=== PATIENT | female | born 1970 | race Hispanic/Latino ===

== ENCOUNTER → 2024-09-28 | Outpatient (CLI) | payer OTHER, SELFPAY ==
[~2024-09-28] MED LIST: BIRTH CONTROL PILL
--- NOTE | 2024-09-28 16:32 | HMCIMG ---
MR KNEE LEFT WO HISTORY: No additional history given. COMPARISON: None TECHNIQUE: MRI of the left knee was performed utilizing multiple pulse sequences in axial, coronal and sagittal planes. Patient was not given contrast through intravenous route. FINDINGS: Abnormal increased signal intensity is seen involving the proximal tibia consistent bone bruise (microtrabecular fracture). Small joint effusion is seen. The anterior cruciate and posterior cruciate ligaments are grossly intact. The medial and lateral collateral ligaments are also intact. Quadriceps tendon and patellar tendon are within normal limits. There is intrasubstance tear involving the medial and lateral menisci. There appears be medial meniscal tear involving posterior horn with both superior and inferior articular extension. No evidence of Madrid's cyst is seen. IMPRESSION: 1. Suspect medial meniscal tear. Small joint effusion is seen. Bone bruise is seen of the proximal tibia at midline.
== END | disposition home or self-care (01) ==
LOC: RAH 14:11
PROVIDERS: ATTEND Internal Medicine
DX: S80.12XA Contusion of left lower leg, initial encounter (principal); M23.305 Other meniscus derangements, unspecified medial meniscus, unspecified knee; M25.462 Effusion, left knee; Z13.29 Encounter for screening for other suspected endocrine disorder; X58.XXXA Exposure to other specified factors, initial encounter; Y93.89 Activity, other specified; Y92.89 Other specified places as the place of occurrence of the external cause; Y99.8 Other external cause status
CPT/HCPCS: 73721